=== PATIENT | female | born 2005 | race Caucasian/White ===

== ENCOUNTER 2024-04-08 17:26 | Emergency (ER) | payer BC ==
[~2024-04-08] VITALS: Ht 167.6 cm; Wt 57.6 kg
[2024-04-08 17:32] VITALS: BP 113/75; PULSE 82; RESP 16; TEMP 98.1; O2SAT 99
[2024-04-08] MEDS ORDERED: KETOROLAC 30 MG/ML VIAL IVP ONE (17:50)
[2024-04-08] MEDS: ONDANSETRON 4 MG/2 ML VIAL IVP ONE (18:00)
[2024-04-08 18:07] LABS: BILIRUBIN,URINE NEGATIVE (NEGATIVE); BLOOD, URINE 1+ (NEGATIVE); COLOR,URINE YELLOW (YELLOW); LEUKOCYTE ESTERASE ,URINE TRACE (NEGATIVE); NITRITE, URINE NEGATIVE (NEGATIVE); PROTEIN,URINE NEGATIVE (NEGATIVE); UGLUCOSE NEGATIVE (NEGATIVE); UROBILINOGEN,URINE 0.2 EU/dL (0.2 - 1)
[2024-04-08 18:10] LABS: APPEARANCE,URINE SLIGHTLY HAZY (CLEAR)
[2024-04-08 18:12] LABS: BACTERIA,URINE 1+ /HPF (None Seen); MUCUS,URINE None Seen /LPF (None Seen); RBC,URINE 0-5 /HPF (0-5); SQUAMOUS EPITHELIAL CELL,UR 4-10 (MOD) /LPF (0-3 (FEW)); WBC,URINE 0-5 /HPF (0-5)
[2024-04-08 18:29] VITALS: O2SAT 99
[2024-04-08] MEDS ORDERED: ONDA-188 PO (19:10)
[2024-04-08] MEDS ORDERED: KETOROLAC 30 MG/ML VIAL ONE (19:34)
[2024-04-08] MEDS: NACL 0.9% 1,000 ML IV ONE (19:34)
[2024-04-08] MEDS: KETOROLAC 30 MG/ML VIAL IVP ONE (19:36)
== END 2024-04-08 19:46 | disposition home or self-care (01) ==
LOC: MED 17:26
DX: A08.4 Viral intestinal infection, unspecified (principal); Z79.899 Other long term (current) drug therapy
CPT/HCPCS: 81001; 81025; 96361; 96374; 96375; 99284; J1885; J2405; J7030